=== PATIENT | male | born 1960 | race Caucasian/White ===

== ENCOUNTER → 2019-04-18 11:24 | Outpatient (CLI) | payer OTHER, SELFPAY ==
[2019-04-18 11:16] VITALS: BMI 34.7
[2019-04-18 14:23] LABS: ALB/GLOB Ratio 1.1 RATIO (0.9-2.4); AST(SGOT) 30 U/L (15-37); Alanine Aminotransfer ALT/SGPT 64 U/L (16-61); Alkaline Phosphatase 86 U/L (45-117); Anion Gap 6 (5-15); BUN 12 mg/dL (7-18); BUN/Creat Ratio 12.1 RATIO (10-20); Calcium,Total 9.1 mg/dL (8.5-10.1); Chloride 102 mmol/L (98-107); Cholesterol 135 mg/dL (200); EST Glomerular Filtration Rate 82 mL/min (>60); Est Glom Filt Rate - Afr Amer 99 mL/min (>60); Globulin 3.8 g/dL (2.2-4.2); Glucose 87 mg/dL (74-106); High Density Lipoprotein 45 mg/dL; Potassium 4.1 mmol/L (3.5-5.1); Protein, Total 7.8 g/dL (6.4-8.2); Sodium Level 139 mmol/L (136-145); Triglycerides 115 mg/dL; Very Low Density Lipoprotein 23 mg/dL (5-40)
== END ==
PROVIDERS: PCP Family Medicine; Visit Provider Family Medicine
DX: E78.00 Pure hypercholesterolemia, unspecified (principal); I10 Essential (primary) hypertension
CPT/HCPCS: 36415; 80053; 80061

== ENCOUNTER → 2020-06-11 09:55 | Outpatient (CLI) | payer OTHER, SELFPAY ==
[2020-05-27 12:21] VITALS: BMI 34.7
[2020-06-11 13:12] LABS: ALB/GLOB Ratio 0.9 RATIO (0.9-2.4); AST(SGOT) 29 U/L (15-37); Alanine Aminotransfer ALT/SGPT 60 U/L (16-61); Albumin, Serum 3.8 g/dL (3.2-5.0); Alkaline Phosphatase 96 U/L (45-117); Anion Gap 4 (5-15); BUN 20 mg/dL (7-18); BUN/Creat Ratio 18.5 RATIO (10-20); Chloride 105 mmol/L (98-107); Cholesterol 148 mg/dL (200); Creatinine, Serum 1.08 mg/dL (0.70-1.30); EST Glomerular Filtration Rate 74 mL/min (>60); Est Glom Filt Rate - Afr Amer 90 mL/min (>60); Globulin 4.1 g/dL (2.2-4.2); Glucose 85 mg/dL (74-106); High Density Lipoprotein 46 mg/dL; Potassium 4.9 mmol/L (3.5-5.1); Protein, Total 7.9 g/dL (6.4-8.2); Sodium Level 140 mmol/L (136-145); Triglycerides 101 mg/dL; Very Low Density Lipoprotein 20 mg/dL (5-40)
== END ==
PROVIDERS: PCP Family Medicine; Referring Provider Family Medicine; Visit Provider Family Medicine
DX: E78.00 Pure hypercholesterolemia, unspecified (principal)
CPT/HCPCS: 36415; 80053; 80061

== ENCOUNTER → 2020-09-16 15:15 | Outpatient (CLI) | payer OTHER, SELFPAY ==
[2020-09-16 14:43] VITALS: BMI 34.7
--- NOTE | 2020-09-16 15:18 | RAD_ITS ---
STUDY: X-RAY - RIGHT KNEE REASON FOR EXAM: Male, 60 years old. Medial collateral ligament strain. TECHNIQUE: 2 view(s) of the knee. COMPARISON: None. FINDINGS: Normal visualized distal femur. Normal visualized proximal tibia and fibula. Normal proximal tibiofibular articulation. There is no acute fracture, dislocation or destructive osseous pathology. There is mild degenerative arthrosis of the medial femorotibial compartment. Normal lateral femorotibial compartment. Normal patellofemoral articulation. There is no demonstrated joint effusion. Posterior mild medial soft tissue tissue prominence. RAD/Knee 1 or 2 Views IMPRESSION: Mild degenerative changes of the knee without acute fracture or dislocation. Electronically Signed: Kendell Hicks DO at 16:43 EDT Tel [phone], Service support ,
== END ==
PROVIDERS: PCP Family Medicine; Referring Provider Family Medicine; Visit Provider Family Medicine
DX: S83.411A Sprain of medial collateral ligament of right knee, initial encounter (principal)
CPT/HCPCS: 73560

== ENCOUNTER → 2021-01-16 06:31 | Outpatient (CLI) | payer OTHER, SELFPAY ==
--- NOTE | 2021-01-16 06:32 | MRI_ITS ---
STUDY: MRI RIGHT KNEE REASON FOR EXAM: Medial right knee pain for 6 to 8 months. TECHNIQUE: Standardized fat and water weighted pulse sequences were obtained in all 3 orthogonal planes. COMPARISON: Radiographs 09/16/2020. FINDINGS: There is a horizontal tear of the inferior articular surface/free margin of the posterior horn of the medial meniscus (proton-density sagittal images 29-40) and a complex tear of the body of the medial meniscus (proton-density coronal images 16, 17). There is mild arthrosis of the medial femorotibial compartment with mild partial-thickness chondral loss of the medial femoral condyle (T2 sagittal image 20). There is slight subchondral bone edema of the medial tibial plateau, a stress phenomenon. There is a small subchondral cyst in the anterior nonweightbearing medial femoral condyle. There is mild periligamentous inflammation of the medial collateral ligament (T2 coronal image 17). Normal distal semimembranosus, gracilis and semitendinosus tendons. Normal lateral meniscus. Normal hyaline cartilage of the lateral femorotibial compartment. Normal lateral femoral condyle and tibial plateau. Normal proximal tibiofibular articulation. Normal lateral collateral (fibular) ligament. Normal popliteus tendon. Normal biceps femoris tendon. Normal anterior cruciate ligament (ACL). Normal posterior cruciate ligament (PCL). Normal congruent patellofemoral articulation. Normal hyaline cartilage of the patellofemoral compartment. Normal medial and lateral patellar retinaculum. Normal visualized quadriceps tendon. Normal patellar tendon. Normal Hoffa''s fat pad. There is a small joint effusion. There is mild prepatellar bursitis (T2 sagittal images 12-15) and mild edema in the anterior subcutis adipose space. There is a minimal popliteal cyst (T2 sagittal image 24). The otherwise visualized osseous structures are unremarkable. MRI/Lower Ext Joint Only (Routine) IMPRESSION: Medial meniscal tear. Mild arthrosis of the medial femorotibial compartment. Mild periligamentous inflammation of the medial collateral ligament. Small joint effusion. Mild prepatellar bursitis. Electronically Signed: Matt Ray MD at 9:35 EDT Tel , Service support ,
== END ==
PROVIDERS: PCP Family Medicine; Referring Provider Physician Assistant; Visit Provider Physician Assistant
DX: M25.361 Other instability, right knee (principal); M25.561 Pain in right knee
CPT/HCPCS: 73721

== ENCOUNTER 2021-03-24 06:28 | Day surgery (SDC) | payer OTHER, SELFPAY ==
--- NOTE | 2021-03-24 07:22 | HP.PCM_ITS ---
History and Physical Date of Admission: 03/24/21 Date of Service: 01/21/21 MR#:[id number]: ELDER JENSENRep #:[id number]:[id number] Provider:Dr. Dani Crabtree DOAge/Sex: 60/M Location:[facility]:Signed Intake Intake Visit Reasons: RIGHT KNEE Chief Complaint: Rt knee pain Allergies Ygnhxza-Pji-Zuh Reductase Inhibitor Allergy (Unknown, Verified 01/21/21 08:02) Unknown Medications omega-3 fatty acids 1,000 mg capsule 1,000 mg PO DAILY 03/28/18 [History Confirmed 01/21/21] atorvastatin 40 mg tablet See Rx Instructions .ROUTE .COMPLEX #90 tablet 08/27/20 [Rx Confirmed 01/21/21] omeprazole 20 mg capsule,delayed release 20 mg PO DAILY #90 cap 09/12/20 [Rx Confirmed 01/21/21] glucosamine sulfate 500 mg tablet 1,000 mg PO DAILY tab 12/03/20 [History Confirmed 01/21/21] PFSH Medical History (Updated 01/21/21 @ 08:[address] Dani Crabtree DO) Arthritis Back problem Chronic headaches GERD (gastroesophageal reflux disease) Hearing problem High cholesterol Surgical History History of vasectomy Family History Father Colon cancer Heart disease High cholesterol CVA (cerebral vascular accident) Mother Colon cancer High cholesterol Osteoporosis Skin cancer Brother Kidney disease Sister Arthritis Thyroid cancer Hypertension Liver disease Social History (Updated 12/03/20 @ 14:32 by Neha Sandoval) household members: spouse housing: house current occupational status: employed Smoking Status: Never smoker alcohol intake: never substance use type: does not use what type of physical activity do you participate in: none do you feel safe at home: Yes HPI RIGHT KNEE Details: Parts of this documentation were recorded by a scribe, this documentation accurately reflects the service provided and the decisions made by me, Dr. Dani Crabtree DO 01/21/21 0393. ELDER JENSEN is a 60 year old M here today for review of his MRI. Patient had a right knee MRI on: 01/16/2021. Patient voiced at times he feels he is better, but some movements will increase his pain. Denies taking anything OTC at this time. Patient is currently not wearing any bracing. Pain is usually felt with his anterior medial. Pain has been worsening over the last six months. Denies any locking and catch ing of his knee. Ortho Exam General General: Yes no acute distress and Yes well groomed Neurologic: Yes alert and Yes oriented x3 Psychologic: Yes reasonable and appropriate Right Knee Skin/Wound: No erythema, No ecchymosis and No swelling Homans Sign: No Knee ROM: Yes ROM-Extension -20 to 0 and Yes ROM-Flexion 0-140 Examination: Yes Med jt line tenderness, No Lat jt line tenderness and Yes McMur ray's Test Stability: NML: Anterior Drawer, NML: Posterior Drawer, NML: Valgus 0, NML: Valgus 30, NML: Varus 0 and NML: Varus 30 Patella Translation: 1 Patella Grind: No KNEE: no patellar instability no joint effusion Left Knee Patella Translation: 1 Supplemental Info 01/16/2021 MRI right knee: Horizontal tearing of the posterior horn medial meniscus with complex tearing of the body mild arthrosis of the medial compartment with partial thickness chondral loss of the medial femoral condyle slight subchondral bone edema of the medial tibial plateau mild periligamentous inflammation of the MCL small joint effusion mild prepatellar bursitis Coding Level of Care Code Off vis,est,level 3 Diagnoses Internal derangement of right knee M23.91 Medial collateral ligament sprain of knee S83.411D Encounter type: subsequent encounter Laterality: right Medial meniscus tear S83.231D Tear current or old: current Encounter type: subsequent encounter Meniscus tear of knee type: complex Laterality: right Assessment and Plan Assessment and Plan (1) Internal derangement of right knee: Status: Acute (2) Medial collateral ligament sprain of knee: Status: Acute Qualifiers: Encounter type: subsequent encounter Laterality: right Qualified Code(s): S83.411D - Sprain of medial collateral ligament of right knee, subsequent encounter (3) Medial meniscus tear: Status: Acute Qualifiers: Tear current or old: current Encounter type: subsequent encounter Meniscus tear of knee type: complex Laterality: right Qualified Code(s): S83.231D - Complex tear of medial meniscus, current injury, right knee, subsequent encounter Plan - Dr. Dani Crabtree, DO: Personally reviewed any recent imaging and tests in patient's chart. Advised patient does have tears and arthritis noted on his MRI. Educated patient on the anatomy of his knee. Treatment options: partial meniscectomy, or steroid injection. Advised based on the tear, patient will eventually need an arthroscopy. Explained the benefits of the procedure. Advised patient he can take at least two weeks or so off work. Patient can work fairly quick, expressed caution. Explained patient would have to keep the area clean and dry, especially covered while at work. Demonstrated where the incisions would be with his knee. Explained patient can continue with his current s/s and explained the possibility he may or may not get worse. Risks of surgery was discussed, Such as continued pain or blood clot. Patient will be contacting the billing department and will update our office. Patient is thinking possible surgery in approximately two months. Towards the second week of March 24, 2021. Patient is in agreement with plan and verbalized understanding. Patient will follow up two weeks post-operatively. 01/21/21 0900<Electronically signed by Dani Crabtree DO>Date Dani Crabtree DO Cosigner Signature:Date (if applicable) CC: ~I have re-examined the patient. There are no clinical changes since date of exam
[2021-03-24 07:35] VITALS: BP 138/88; PULSE 63; RESP 16; TEMP 36.9; O2SAT 98; BMI 33.0
[2021-03-24] MEDS: Lactated Ringers 1,000 ML 100 ML IV (07:37)
[2021-03-24] MEDS: Cefazolin 2 GM in 0.9% Normal Saline 100 ML IV (08:12)
[2021-03-24] MEDS: Epinephrine (1 mg/ml) 1 MG/ML VIAL (08:34)
[2021-03-24] MEDS: Lidocaine 1% /Epi 1:100 (20ml) 20 ML Vial (08:34)
[2021-03-24] MEDS: Bupivacaine Mpf 0.5% 30 ML VIAL (08:55)
[2021-03-24] MEDS: MethylPREDNISolone Acetate 40 MG/ML Vial IM (08:55)
--- NOTE | 2021-03-24 08:55 | OP.PCM_ITS ---
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 Postoperative diagnosis: Right knee complex tear posterior horn and body medial meniscus , anterior horn medial meniscus tear diffuse grade 3 cartilage wear medial femoral condyle approaching grade 4 grade 4 cartilage wear in the trochlea Procedure: Right knee arthroscopic partial medial meniscectomy and chondroplasty Anesthesia: General Estimated blood loss: 5 mL Tourniquet time: 30 minutes 300 mmHg Complications: none Indication for procedure: 60-year-old male with a mechanical knee pain MRI evidence of medial meniscus tear and DJD the patient did wish to proceed with an elective arthroscopic surgery to attempt to alleviate the symptoms. Risk benefits and alternatives of the procedure were reviewed including risk of bleeding infection nerve artery tissue damage need for further surgery continued pain and expected postoperative course. Procedure: The patient was met in the preoperative holding area. The operative extremity was identified by both patient and physician and family and marked. Patient was brought back to the operating room on a wheeled cart and transferred to the operating table in the supine position. Anesthesia was started. A well- padded tourniquet was placed on the operative extremity. A lower extremity leg chen was secured to the operative extremity. The contralateral extremity was well-padded and the end of the bed was flexed to 90 degrees. The patient was prepped and draped in the usual sterile fashion. A timeout was called to ensure the proper patient, procedure, and extremity were being contemplated. 0.5% Marcaine with epinephrine was injected into the planned incisional areas under the skin only. An Esmarch was used to exsanguinate the extremity and the tourniquet was inflated. An 11 blade scalpel was used to make a stab incision in the anterior lateral portal. The arthroscope was inserted into the intercondylar notch and inflow and outflow tubes were attached. Arthroscopic visualization began. The medial compartment was entered. An 18-gauge spinal needle was used to establish the placement for anterior medial portal. An 11 blade scalpel was used to make a stab incision. Blunt probe was inserted followed by a meniscal probe. There was noted be complex tearing of the posterior horn of the medial meniscus and an anterior horn flap with the use of arthroscopic biting instruments and a shaver partial medial meniscectomy was performed there was noted to be a large grade 3 chondral lesion of the medial femoral condyle approaching grade 4 loose cartilage flaps were debrided with a shaver the ACL was found to be intact. The lateral compartment was entered was free of meniscal or cartilage pathology The arthroscope was switched to the medial portal to complete the procedure. The medial and lateral gutters were inspected and were free of loose bodies. The patellofemoral joint was inspected grade 4 cartilage wear of the trochlea grade 3 of the patella. There was good patellar tracking. The knee was thoroughly irrigated and drained. An intra- articular injection with 5 cc 0.5% Marcaine plain and 40 mg of Depo-Medrol was injected intra-articularly. The arthroscope was removed the portals were closed with 3-0 nylon arthroscopic stitches. Followed by Xeroform 4 x 4's ABDs web roll and an Clive wrap. The tourniquet was let down and the drapes were removed. All counts were correct. The patient was brought back to the PACU in stable condition.
--- NOTE | 2021-03-24 08:59 | PCM.DC ---
Discharge Instructions Activity Weight Bearing Status: Weight bearing as tolerated Dressing / Incision Call your doctor if you observe: Shortness of breath and Chest pain Additional Dressing/Incision Instructions:: Ice and elevate next 72 hours .keep dressing on clean and dry for 48 hours then may remove begin showering daily but do not submerge in tub or pool. After shower may apply Band-Aids . Encourage knee range of motion weightbearing as tolerated, use crutches until confident in knee then may discontinue. No strenuous activity. When not ambulating keep iced and elevated next 72 hours. Do not mix pain medication with recreational drugs or alcohol only take as prescribed can be addictive and abusive, call with any questions or concerns. Follow Up Care Please Follow Up With: Dani Crabtree DO When: 2 weeks Test Results: Test results from this visit will be discussed in further detail at your follow-up appointment, if applicable. Discharge Plan Admission Primary Reason for Your Visit: right knee arthroscopy Attending Provider: Dani Crabtree Primary Care Provider: Jesse Saldaña Discharge Orders/Prescriptions Prescriptions: New oxycodone 5 mg tablet 5 - 10 mg PO Q4H PRN (Reason: pain) 5 Days Qty: 20 RF: 0 No Action omega-3 fatty acids [Fish Oil Concentrate] 1,000 mg capsule 1,000 mg PO DAILY RF: 0 glucosamine sulfate [Glucosamine] 500 mg tablet 1,000 mg PO DAILY RF: 0 atorvastatin 40 mg tablet 40 mg PO QHS RF: 0 omeprazole 20 mg capsule,delayed release(DR/EC) 20 mg PO DAILY Qty: 90 RF: 3 Referrals / Follow Up: Jesse Saldaña DO [Primary Care Provider] - Disposition Disposition (needs filled in before D/C Order can be placed): Home, Self Care
[2021-03-24 09:12] VITALS: BP 138/88; BP 148/98; PULSE 61; PULSE 68; RESP 18; TEMP 35.9; O2SAT 96; O2SAT 97
[2021-03-24 09:15] VITALS: BP 138/88; BP 138/97; PULSE 58; RESP 18; O2SAT 93
[2021-03-24 09:33] VITALS: BP 138/88; BP 144/89; PULSE 56; RESP 18; O2SAT 97
[2021-03-24 09:38] VITALS: BP 138/88; BP 153/83; PULSE 59; RESP 18; TEMP 35.9; O2SAT 96
[2021-03-24 10:05] VITALS: BP 138/88
== END 2021-03-24 10:40 | disposition home or self-care (01) ==
LOC: SDC 06:30 → AC 06:30
PROVIDERS: PCP Family Medicine; Referring Provider Orthopaedic Surgery; Visit Provider Orthopaedic Surgery
PROC: (CPT 29870; principal; 2021-03-24 07:40)
DX: S83.231A Complex tear of medial meniscus, current injury, right knee, initial encounter (principal); S83.411A Sprain of medial collateral ligament of right knee, initial encounter; X58.XXXA Exposure to other specified factors, initial encounter; M19.90 Unspecified osteoarthritis, unspecified site; K21.9 Gastro-esophageal reflux disease without esophagitis; E78.00 Pure hypercholesterolemia, unspecified; H91.90 Unspecified hearing loss, unspecified ear; G43.909 Migraine, unspecified, not intractable, without status migrainosus; Z79.899 Other long term (current) drug therapy
CPT/HCPCS: 01400; 29881; 87426; C9803; J7120; J2405

== ENCOUNTER 2021-08-19 09:38 | Outpatient (CLI) | payer OTHER, SELFPAY ==
[2021-08-19 12:09] LABS: Absolute Lymphocyte Count 1.57 X10^3/uL (0.83-4.51); Absolute Neutrophil Count 3.7 X10^3/uL (2.0-7.7); Basophil# 0.03 X10^3/uL; Basophil% 0.5 % (0-1); Eosinophil# 0.11 X10^3/uL; Eosinophils% 1.9 % (0-5); Hemoglobin 16.2 g/dL (13.0-16.5); Lymphocyte # 1.57 X10^3/ul (0.83-4.51); Lymphocyte % 26.8 % (19-41); Mean Corp Hgb Conc 33.8 g/dL (32-36); Mean Corpuscular Hgb 30.5 pg (27.0-32.0); Mean Corpuscular Volume 90.4 fL (80-94); Mean Platelet Vol. 10.2 fl (6.2-12.0); Monocyte# 0.48 X10^3/uL; Monocyte% 8.2 % (0-10); NRBC Flagged by Analyzer 0 % (0-5); Neutrophil # 3.66 X10^3/uL (2.7-7.7); Neutrophil % 62.4 % (47-70); Platelet Count 241 K/mm3 (150-450); RBC Distribution Width CV 13.9 % (11.6-14.6); RBC Distribution Width SD 46.5 fl (35.1-43.9); Red Blood Count 5.31 M/mm3 (4.6-6.2); White Blood Count 5.9 K/mm3 (4.4-11.0)
[2021-08-19 12:49] LABS: ALB/GLOB Ratio 1.1 RATIO (0.9-2.4); AST(SGOT) 24 U/L (15-37); Alanine Aminotransfer ALT/SGPT 39 U/L (16-61); Albumin, Serum 4.1 g/dL (3.2-5.0); Alkaline Phosphatase 80 U/L (45-117); Anion Gap 4 (5-15); BUN 14 mg/dL (7-18); BUN/Creat Ratio 14.1 RATIO (10-20); Calcium,Total 9.1 mg/dL (8.5-10.1); Chloride 104 mmol/L (98-107); Cholesterol 276 mg/dL (200); Creatinine, Serum 0.99 mg/dL (0.70-1.30); EST Glomerular Filtration Rate 82 mL/min (>60); Est Glom Filt Rate - Afr Amer 99 mL/min (>60); Globulin 3.6 g/dL (2.2-4.2); Glucose 95 mg/dL (74-106); High Density Lipoprotein 40 mg/dL; PSA,Total - Annual Screen 1.38 ng/mL (0.00-4.00); Potassium 4.4 mmol/L (3.5-5.1); Protein, Total 7.7 g/dL (6.4-8.2); Sodium Level 138 mmol/L (136-145); Triglycerides 315 mg/dL; Very Low Density Lipoprotein 63 mg/dL (5-40)
== END 2021-08-19 23:59 | disposition home or self-care (01) ==
LOC: BIMLAB 09:38
PROVIDERS: PCP Family Medicine; Referring Provider Family Medicine; Visit Provider Family Medicine
DX: R25.2 Cramp and spasm (principal); E78.00 Pure hypercholesterolemia, unspecified; R35.1 Nocturia; Z12.5 Encounter for screening for malignant neoplasm of prostate
CPT/HCPCS: 36415; 80053; 80061; 84153; 85025; G0103

== ENCOUNTER → 2022-09-15 | Outpatient (CLI) | payer OTHER, SELFPAY ==
[2022-09-15 12:38] LABS: ALB/GLOB Ratio 1.2 RATIO (0.9-2.4); AST(SGOT) 29 U/L (15-37); Alanine Aminotransfer ALT/SGPT 53 U/L (16-61); Albumin, Serum 3.9 g/dL (3.2-5.0); Alkaline Phosphatase 85 U/L (45-117); Anion Gap 5 (5-15); BUN 18 mg/dL (7-18); BUN/Creat Ratio 17.3 RATIO (10-20); Calcium,Total 9.7 mg/dL (8.5-10.1); Chloride 105 mmol/L (98-107); Cholesterol 144 mg/dL (200); Creatinine, Serum 1.04 mg/dL (0.70-1.30); EST Glomerular Filtration Rate 77 mL/min (>60); Est Glom Filt Rate - Afr Amer 93 mL/min (>60); Globulin 3.2 g/dL (2.2-4.2); Glucose 91 mg/dL (74-106); High Density Lipoprotein 44 mg/dL; Potassium 4.8 mmol/L (3.5-5.1); Protein, Total 7.1 g/dL (6.4-8.2); Sodium Level 142 mmol/L (136-145); Triglycerides 131 mg/dL; Very Low Density Lipoprotein 26 mg/dL (5-40)
== END | disposition home or self-care (01) ==
LOC: BIMLAB 08:23
PROVIDERS: PCP Family Medicine; Referring Provider Family Medicine; Visit Provider Family Medicine
DX: I10 Essential (primary) hypertension (principal)
CPT/HCPCS: 36415; 80053; 80061

== ENCOUNTER → 2024-01-10 | Outpatient (CLI) | payer OTHER, SELFPAY ==
[2024-01-10 13:47] LABS: AST(SGOT) 29 U/L (15-37); Alanine Aminotransfer ALT/SGPT 61 U/L (16-61); Albumin, Serum 3.7 g/dL (3.2-5.0); Alkaline Phosphatase 86 U/L (45-117); Anion Gap 6 (5-15); BUN 17 mg/dL (7-18); BUN/Creat Ratio 15.7 RATIO (10-20); Calcium,Total 9.5 mg/dL (8.5-10.1); Chloride 105 mmol/L (98-107); Cholesterol 138 mg/dL (200); Creatinine, Serum 1.08 mg/dL (0.70-1.30); EST Glomerular Filtration Rate 73 mL/min (>60); Est Glom Filt Rate - Afr Amer 89 mL/min (>60); Globulin 3.8 g/dL (2.2-4.2); Glucose 95 mg/dL (74-106); High Density Lipoprotein 40 mg/dL; PSA,Total- Diagnostic 1.64 ng/mL (0.0-4.0); Potassium 4.9 mmol/L (3.5-5.1); Protein, Total 7.5 g/dL (6.4-8.2); Sodium Level 139 mmol/L (136-145); Triglycerides 173 mg/dL; Very Low Density Lipoprotein 35 mg/dL (5-40)
== END | disposition home or self-care (01) ==
LOC: BIMLAB 09:27
PROVIDERS: PCP Family Medicine; Referring Provider Family Medicine; Visit Provider Family Medicine
DX: E78.00 Pure hypercholesterolemia, unspecified (principal); I10 Essential (primary) hypertension
CPT/HCPCS: 36415; 80053; 80061; 84153

== ENCOUNTER → 2025-02-21 | Outpatient (CLI) | payer OTHER, SELFPAY ==
[2025-02-21 15:06] LABS: Hematocrit 43.2 % (40-54); Hemoglobin 14.8 g/dL (13.0-16.5); Immature Granulocytes Count 0.100 X10^3/uL (0.0-0.0); Mean Corp Hgb Conc 34.3 g/dL (32-36); Mean Corpuscular Volume 88.9 fL (80-94); Mean Platelet Vol. 10.6 fl (6.2-12.0); NRBC Flagged by Analyzer 0 % (0-5); Platelet Count 225 K/mm3 (150-450); RBC Distribution Width CV 13.6 % (11.6-14.6); RBC Distribution Width SD 44.0 fl (35.1-43.9); Red Blood Count 4.86 M/mm3 (4.6-6.2); White Blood Count 6.3 K/mm3 (4.4-11.0)
[2025-02-21 19:15] LABS: AST(SGOT) 34 U/L (<=37); Alanine Aminotransfer ALT/SGPT 56 U/L (<=46); Albumin, Serum 4.5 g/dL (3.4-4.8); Alkaline Phosphatase 79 U/L (40-129); Anion Gap 10 (5-15); BUN 17 mg/dL (4-19); BUN/Creat Ratio 16.8 RATIO (10-20); Calcium,Total 9.7 mg/dL (7.6-11.0); Carbon Dioxide 25.7 mmol/L (21.0-32.0); Chloride 104 mmol/L (98-108); Cholesterol 148 mg/dL (<=200); Globulin 2.8 g/dL (2.2-4.2); Glucose 93 mg/dL (70-99); Low Density Lipoprotein Calc. 84 mg/dL; Potassium 4.4 mmol/L (3.3-5.1); Triglycerides 104 mg/dL; Very Low Density Lipoprotein 21 mg/dL (5-40); cholesterol:hdl ratio screen 3.42
== END | disposition home or self-care (01) ==
LOC: MTLAB 11:15
PROVIDERS: PCP Family Medicine; Referring Provider Family Medicine; Visit Provider Family Medicine
DX: Z00.00 Encounter for general adult medical examination without abnormal findings (principal); I10 Essential (primary) hypertension
CPT/HCPCS: 36415; 80053; 80061; 85025